=== PATIENT | female | born 1980 | race Caucasian/White ===

== ENCOUNTER 2022-09-15 20:02 | Outpatient (CLI) | payer OTHER, SELFPAY ==
[2022-09-15 11:24] LABS: Albumin* 4.7 g/dL (3.3-5.0); Chloride* 107 mmol/L (96-114)
[2022-09-15 11:25] LABS: Potassium* 4.7 mmol/L (3.6-5.1); Sodium* 139 mmol/L (135-149)
[2022-09-15 11:27] LABS: Aspartate Amino Transferase* 24 U/L (12-35); Bilirubin Total* 0.3 mg/dL (0.1-1.5); Blood Urea Nitrogen* 8 mg/dL (5-24); Carbon Dioxide* 26 mmol/L (20-32); Cholesterol* 142 mg/dL (90-199); Creatinine* 0.5 mg/dL (0.5-1.5); Estimated Glomerular Filt Rate 119 ml/min; Glucose* 140 mg/dL (60-115); Total Protein* 7.2 g/dL (6.0-8.3)
[2022-09-15 11:28] LABS: Alanine Aminotransferase* 23 U/L (4-35); Alkaline Phosphatase* 60 U/L (40-150); Calcium* 9.9 mg/dL (8.4-10.6); Creatinine Urine 128.5 mg/dL; HDL Cholesterol* 74 mg/dL (>=50); LDL Cholesterol Calculated 51 mg/dL (<100); Triglycerides* 85 mg/dL (40-149)
[2022-09-15 11:33] LABS: Microalbumin Creatinine Ratio 0 mg/g (0-30); Microalbumin Urine 1 mg/dL
[2022-09-15 12:00] LABS: Ferritin* 27.3 ng/mL (6.24-137.0)
== END 2022-09-15 20:03 | disposition home or self-care (01) ==
PROVIDERS: PCP Family Medicine; Visit Provider Family Medicine
DX: Z01.419 Encounter for gynecological examination (general) (routine) without abnormal findings (principal); E11.9 Type 2 diabetes mellitus without complications; D50.9 Iron deficiency anemia, unspecified; E78.5 Hyperlipidemia, unspecified; E66.9 Obesity, unspecified
CPT/HCPCS: 80053; 80061; 82043; 82570; 82728

== ENCOUNTER 2022-12-15 15:24 | Outpatient (CLI) | payer OTHER, SELFPAY ==
--- NOTE | 2022-12-15 15:40 | CRLHL7_ITS ---
For Patients: As a result of the Century Cures Act, medical imaging exams and procedure reports are released immediately into your electronic medical record. You may view this report before your referring provider. If you have questions, please contact your health care provider. BILATERAL SCREENING MAMMOGRAM WITH COMPUTER-AIDED DETECTION TECHNIQUE: CC and MLO views were obtained. These mammographic images have been obtained using full-field digital technique. These mammographic images were interpreted with the benefit of computer-aided detection. COMPARISON FILM: 07/30/21, 07/23/20. FINDINGS: There are scattered areas of fibroglandular density. IMPRESSION: There is no radiographic evidence for malignancy. ASSESSMENT: BI-RADS Category 2: Benign RECOMMENDATION: Routine screening mammogram in 1 year. A lay language report of this examination will be provided to the patient. LUKE TAYLOR M.D. Diagnostic Radiologist [email or web address] Transcribed: 12/16/2022, 2:[address]/Dictated by: Luke Taylor MD @ 12/16/2022 9:50:00 AM (Electronically Signed)
== END 2022-12-15 15:25 | disposition home or self-care (01) ==
LOC: MAMMO 15:27
PROVIDERS: PCP Family Medicine; Visit Provider Family Medicine
DX: Z12.31 Encounter for screening mammogram for malignant neoplasm of breast (principal)
CPT/HCPCS: 77063; 77067

== ENCOUNTER 2023-08-25 16:00 | Outpatient (RCR) | payer OTHER, SELFPAY | END 2023-10-28 13:40 | disposition home or self-care (01) | PROVIDERS: PCP Family Medicine; Visit Provider Family Medicine | DX: M25.551 Pain in right hip (principal); M25.552 Pain in left hip; Z51.89 Encounter for other specified aftercare | CPT/HCPCS: 97110; 97140; 97161 ==

== ENCOUNTER 2023-12-21 16:45 | Outpatient (CLI) | payer OTHER, SELFPAY ==
--- NOTE | 2023-12-21 17:00 | MM_ITS ---
Final Report Patient: GARY CARVALHO Facility:?[facility] Patient ID:?[id number] :?1980 Study:?XRay Breast Bilateral 3D W/CAD-12/21/2023 5:35:27 PM Ordering Physician:Luke Alvarez Final Report: BILATERAL SCREENING MAMMOGRAM WITH COMPUTER-AIDED DETECTION AND TOMOSYNTHESIS TECHNIQUE: CC and MLO views were obtained. These mammographic images have been obtained using full-field digital technique. These mammographic images were interpreted with the benefit of computer-aided detection. Breast Tomosynthesis was used in this interpretation. COMPARISON FILM: 12/15/22, 07/30/21, 07/23/20. FINDINGS: The breasts are heterogeneously dense, which may obscure small masses. IMPRESSION: There is no radiographic evidence for malignancy. ASSESSMENT: BI-RADS Category 1: Negative RECOMMENDATION: Routine screening mammogram in 1 year. A lay language report of this examination will be provided to the patient. Luke Looney M.D. Diagnostic Radiologist [email or web address] DSM/sp R& Transcribed: 4:[address]/Dictated by: Luke Looney MD @ 12/22/2023 10:19:00 AM (Electronic Signature)
== END 2023-12-21 16:46 | disposition home or self-care (01) ==
LOC: MAMMO 16:46
PROVIDERS: PCP Family Medicine; Visit Provider Family Medicine
DX: Z12.31 Encounter for screening mammogram for malignant neoplasm of breast (principal); R92.2 Inconclusive mammogram
CPT/HCPCS: 77063; 77067

== ENCOUNTER 2024-12-27 09:16 | Outpatient (CLI) | payer OTHER, SELFPAY | END 2024-12-27 09:17 | disposition home or self-care (01) | PROVIDERS: PCP Family Medicine; Visit Provider Family Medicine | DX: E78.2 Mixed hyperlipidemia (principal); E11.9 Type 2 diabetes mellitus without complications; Z79.84 Long term (current) use of oral hypoglycemic drugs | CPT/HCPCS: 80048; 80061; 84460 ==

== ENCOUNTER 2025-04-11 09:17 | Outpatient (CLI) | payer OTHER, SELFPAY ==
--- NOTE | 2025-04-11 09:15 | CRLHL7_ITS ---
For Patients: As a result of the Century Cures Act, medical imaging exams and procedure reports are released immediately into your electronic medical record. You may view this report before your referring provider. If you have questions, please contact your health care provider. INDICATION: BILATERAL SCREENING MAMMOGRAM, ASYMPTOMATIC 44 Y/O FEMALE COMPARISON: 12/21/2023, 12/15/2022, 07/30/2021 TECHNIQUE: Digital mammogram in CC and MLO projections including computer-aided detection (CAD) and tomosynthesis. BREAST COMPOSITION: There are scattered areas of fibroglandular density. FINDINGS: No suspicious findings. ASSESSMENT: BI-RADS 2 Benign RECOMMENDATION: Annual screening mammogram. A lay language report of this examination will be provided to the patient. Dictated by: Luke Looney MD @ 04/11/2025 09:55:03 (Electronically Signed)
== END 2025-04-11 09:18 | disposition home or self-care (01) ==
PROVIDERS: PCP Family Medicine; Visit Provider Family Medicine
DX: Z12.31 Encounter for screening mammogram for malignant neoplasm of breast (principal)
CPT/HCPCS: 77063; 77067